=== PATIENT | male | born 1960 | race African-American/Black ===

== ENCOUNTER 2018-12-04 17:22 | Observation (INO) ==
[2018-12-04] MEDS ORDERED: ZOFRAN IM ONE (18:33)
[2018-12-04] MEDS ORDERED: MORPHINE IV ONE (18:33)
[2018-12-04] MEDS ORDERED: ZOFRAN IV ONE (18:38)
[2018-12-04] MEDS ORDERED: TORADOL IV ONE (18:57)
[2018-12-04 18:59] LABS: BASO# 0.05 X1000 (0.0-0.2); BASO% 0.7 % (0.0-0.8); EOS# 0.33 X1000 (0.0-0.7); EOS% 4.6 % (0.0-10.0); LYMPH# 2.67 X1000 (1.2-3.4); LYMPH% 36.9 % (20.5-51.1); MCH 34.1 PG (27-31); MCV 97.3 FL (81-99); MONO# 0.65 X1000 (0.11-0.59); MPV 10.6 FL (7.4-10.4); NEUT# 3.53 X1000 (1.4-6.5); NEUT% 48.8 % (42.2-75.2); PLT 169 X1000 (130-400); RBC 4.11 XMIL (4.7-6.1); RDW 13.5 % (11.5-14.5); WBC 7.23 X1000 (4.8-10.8)
[2018-12-04 19:24] LABS: AGAP 9; ALBUMIN 3.9 g/dL (3.5-5.0); ALKALINE PHOSPHATASE 122 U/L (32-122); BUN 10 mg/dL (8-22); CALCIUM 8.6 mg/dL (8.8-10.2); CHLORIDE 104 mmol/L (98-107); COSMO 278; CREATININE 0.8 mg/dL (0.7-1.2); ESTIMATED GFR > 60; GLUCOSE 89 mg/dL (70-104); GOT 15 U/L (10-34); GPT 15 U/L (10-44); LIPASE 17 U/L (13-60); POTASSIUM 3.7 mmol/L (3.5-5.1); SODIUM 140 mmol/L (136-145); TCO2 26 mmol/L (25-35); TOTAL PROTEIN 6.9 g/dL (6.3-8.3)
--- NOTE | 2018-12-04 19:36 | Diag Imaging Result Doc PS360 ---
EXAM: US ABDOMEN-COMPLETE INDICATION: RUQ pain COMPARISON: None. FINDINGS: There has been a prior cholecystectomy. The common bile duct is normal in diameter. The liver is grossly unremarkable. Portal venous flow is hepatopetal. The pancreas is partially obscured by bowel gas. The visualized portion is unremarkable. The aorta and IVC are grossly unremarkable. The spleen is unremarkable. There is mild prominence of the left renal collecting system. This is of unknown acuity. The kidneys are unremarkable, otherwise. IMPRESSION: Very mild prominence of the left renal collecting system, which is of unknown acuity, but certainly could be chronic. Unremarkable ultrasound, otherwise. Electronically signed by Phillip De La Rosa 12/04/2018 7:34 PM
--- NOTE | 2018-12-04 21:05 | Diag Imaging Result Doc PS360 ---
EXAM: CHEST-2 VIEWS INDICATION: rib pain TECHNIQUE: 2 views COMPARISON: None. FINDINGS: The lungs are grossly clear. There is no discrete pleural fluid collection or pneumothorax. The cardiomediastinal silhouette and central vasculature are grossly unremarkable. IMPRESSION: No evidence of acute pathology by plain radiograph. Electronically signed by Phillip De La Rosa 12/04/2018 9:03 PM
[2018-12-04] MEDS ORDERED: LOVENOX 1 MG/KG SUBQ ONE (21:27)
[2018-12-04] MEDS ORDERED: NITROGLYCERIN TOP ONE (21:27)
[2018-12-04] MEDS ORDERED: ASPIRIN PO ONE (21:27)
[2018-12-04] MEDS ORDERED: LOVENOX ONE (21:59)
[2018-12-05 08:31] VITALS: BP 132/89
[2018-12-05] MEDS ORDERED: ROBAXIN PO PRN (10:44)
[2018-12-05] MEDS ORDERED: MOBIC PO SCH (10:45)
--- NOTE | 2018-12-05 11:25 | GRADED EXERCISE REPORT ---
DATE: 12/05/2018 STUDY: Lexiscan. INDICATION: Bradycardia. DESCRIPTION OF PROCEDURE IN DETAIL: Dr. Rosario ordering. Baseline heart rate 40, although sometimes it was in the 30s, had a sinus bradycardia. Blood pressure 141/93. Baseline EKG showed sinus andrea, nonspecific ST changes. He underwent Lexiscan per protocol 0.4 mg. He did develop some chest pressure during the test. However, no significant ST-T changes were noted. He did increase his heart rate though to about the 80s. Peak heart rate 81, peak blood pressure 145/97. The test was felt to be clinically positive, mildly so, and electrically negative. Myocardial perfusion reported separately. cc: Rodri Khan MD
[2018-12-05] MEDS ORDERED: LEXISCAN ONE (11:36)
--- NOTE | 2018-12-05 15:05 | EKG Report ---
Test Performed on : 12/04/2018 7:56:43 PM Test Reason : CP Blood Pressure : / mmHG Vent. Rate : 039 BPM Atrial Rate : 039 BPM P-R Int : 142 ms QRS Dur : 092 ms QT Int : 460 ms P-R-T Axes : 039 019 004 degrees QTc Int : 370 ms Marked sinus bradycardia. Abnormal ECG No previous ECGs available Unconfirmed Result
--- NOTE | 2018-12-05 15:24 | Diag Imaging Result Document ---
PROCEDURE NAME: MYOCARDIAL PERF SCAN, STR/REST - 12/05/2018 INDICATION: This is a 58-year-old male with chest pain, bradycardia. DESCRIPTION OF PROCEDURE: The patient came into the nuclear lab and received a rest injection of technetium 99 sestamibi 14.7 mCi. Multiple tomographic views of the cardiac structures were obtained at rest. Subsequently the patient underwent a walking Lexiscan protocol with infusion of Lexiscan 0.4 mg under the supervision of Dr. Khan and at peak infusion was injected with technetium 99 sestamibi 41.2 mCi. Multiple tomographic views of the cardiac structures were obtained following completion of the protocol. SUMMARY OF MYOCARDIAL PERFUSION PORTION OF THE STUDY: Poststress tomographic views of the left ventricle showed normal homogeneous distribution of radiotracer throughout the entire left ventricular myocardium. There is no evidence of any postexercise defect. The rest images showed normal perfusion. The polar plots revealed the same. There is no evidence of neither inducible ischemia nor myocardial scar. Gated SPECT shows normal left ventricular systolic function. Ejection fraction is estimated at 64%. Normal ventricular volumes. No wall motion abnormality. Lung/heart ratio appears to be elevated. TID is normal. CONCLUSIONS: In summary, this study showed: 1. Normal poststress myocardial perfusion scan. There is no scintigraphic evidence of pharmacologically induced myocardial ischemia. 2. Normal left ventricular systolic function. Ejection fraction is estimated at 64%. Normal ventricular volumes. No wall motion abnormality. 3. This study would suggest low risk for ischemic events. Clinical correlation is recommended. cc: MD Rebecca Villasenor CRNP
--- NOTE | 2018-12-05 23:00 | HISTORY AND PHYSICAL ---
CHIEF COMPLAINT: Rib pain. HISTORY OF PRESENT ILLNESS: The patient is a 58-year-old male who presented to the hospital complaining of bilateral rib pain with movement and twisting. He does a lot of twisting at work. He notes that his ribs have started hurting and they have been burning. ALLERGIES: No known drug allergies. MEDICATIONS: Colchicine, Flexeril, prednisone. PAST MEDICAL HISTORY: Significant for gout. No previous history of coronary disease. REVIEW OF SYSTEMS: Denies any fevers or chills. Denies any real chest pains or palpitations. Denies any shortness of breath. He states that he has pain with movement of his bilateral ribs. It is 10 out of 10 in intensity at times. Denies any dysuria, frequency, urgency or hesitancy. Denies constipation, melena, hematochezia. SOCIAL HISTORY: Noncontributory. The patient is employed. He does smoke and drinks alcohol occasionally. PHYSICAL EXAMINATION: VITAL SIGNS: Reviewed. Temperature 98 degrees, pulse 53, respiratory rate 20. BP 145/127, currently 149/95. Saturation 98% on room air. GENERAL: The patient is awake, alert, very pleasant to talk with. He is in no current respiratory distress. HEENT: Normocephalic. NECK: Supple. CARDIOVASCULAR: Regular rate. CHEST: Clear, nonlabored. He is having tenderness in the bilateral lower ribs to palpation. EXTREMITIES: Moves all extremities. NEUROLOGIC: No changes. ASSESSMENT: 1. Bilateral rib pain. 2. Hypertension, improved. 3. Gout. 4. Musculoskeletal injury. PLAN: The patient was admitted to the hospital overnight, as the ER apparently told Cardiology that the patient was having 10/10 chest pain. This is clearly chest wall pain, as it is easily reproducible with light palpation of his bilateral 10th, 11th and 12th rib area. The patient notes that this is the pain that he complained of in the ER as well. cc: Andrey Rosario MD
--- NOTE | 2018-12-05 23:20 | DISCHARGE SUMMARY ---
ADMISSION DATE: 12/04/2018 DISCHARGE DATE: 12/05/2018 DISCHARGE DIAGNOSES: 1. Bilateral rib pain. 2. Gout. CONSULTATIONS: None. PROCEDURES: Cardiolite GXT that was reported as negative. BRIEF HOSPITAL COURSE: The patient is a 58-year-old male who was admitted to the hospital after Cardiology was told that the patient was having 10/10 chest pain. As noted, this is clearly chest wall and musculoskeletal pain, as it is easily reproducible to light palpation bilaterally on his ribs. The patient has had an uneventful hospital course. He had a stress test that was negative. DISCHARGE DISPOSITION: This patient will be discharged home. Again, discussed with him the use of Flexeril that he has at home only at night. We will write a prescription for Robaxin that he can take during the day as well as an anti-inflammatory, Mobic. Discussed with the patient if symptoms do not resolve he may need to consider physical therapy and time off work. cc: Andrey Rosario MD
== END 2018-12-05 15:59 | disposition home or self-care (01) ==
LOC: P.ED 17:22 → P.MEDSURG 17:23 → INTOOBSV 17:23
PROVIDERS: ATTEND Family Medicine
CPT/HCPCS: 71020; 71046; 76700; 78452; 80053; 83690; 84484; 85025; 85379; 93005; 93017; 96372; 96374; 96375; 99285; A9270; A9500; G0378; J1650; J1885; J2270; J2405; J2785

== ENCOUNTER 2019-04-27 16:04 | Inpatient (IN) ==
--- NOTE | 2019-04-27 16:58 | EKG Report ---
Test Performed on : 04/27/2019 4:41:40 PM Test Reason : WEAKNESS DIZZINESS Blood Pressure : / mmHG Vent. Rate : 050 BPM Atrial Rate : 050 BPM P-R Int : 138 ms QRS Dur : 090 ms QT Int : 420 ms P-R-T Axes : 026 045 061 degrees QTc Int : 382 ms Sinus bradycardia. Minimal voltage criteria for LVH, may be normal variant Nonspecific T wave abnormality Abnormal ECG When compared with ECG of 11-DEC-2018 17:13, Nonspecific T wave abnormality now evident in Lateral leads Unconfirmed Result
[2019-04-27 17:14] LABS: BASO# 0.03 X1000 (0.0-0.2); BASO% 0.5 % (0.0-0.8); EOS# 0.22 X1000 (0.0-0.7); EOS% 3.8 % (0.0-10.0); HEMATOCRIT 39.9 % (42.0-52.0); HEMOGLOBIN 14.3 g/dL (14.0-18.0); LYMPH# 1.93 X1000 (1.2-3.4); MCH 34.7 PG (27-31); MCHC 35.8 g/dL (33-37); MCV 96.8 FL (81-99); MONO# 0.74 X1000 (0.11-0.59); MONO% 12.6 % (1.7-9.3); MPV 10.7 FL (7.4-10.4); NEUT# 2.93 X1000 (1.4-6.5); NEUT% 50.1 % (42.2-75.2); PLT 158 X1000 (130-400); RBC 4.12 XMIL (4.7-6.1); RDW 14.2 % (11.5-14.5); WBC 5.85 X1000 (4.8-10.8)
--- NOTE | 2019-04-27 17:30 | Diag Imaging Result Doc PS360 ---
EXAM: CHEST-2 VIEWS 04/27/2019 HISTORY: weak, dizzy while at work TECHNIQUE: PA and lateral chest COMMENT: There is no evidence of acute cardiac or pulmonary disease. Compared to 12/04/2018 considering differences in technique there has been no significant change. IMPRESSION: No evidence of acute disease. Electronically signed by Duke Kaplan 04/27/2019 5:27 PM
[2019-04-27 17:32] LABS: AGAP 8; ALBUMIN 3.8 g/dL (3.5-5.0); ALKALINE PHOSPHATASE 111 U/L (32-122); BUN 15 mg/dL (8-22); CALCIUM 8.2 mg/dL (8.8-10.2); CHLORIDE 108 mmol/L (98-107); COSMO 276; CREATININE 0.8 mg/dL (0.7-1.2); ESTIMATED GFR > 60; GLUCOSE 90 mg/dL (70-104); GOT 20 U/L (10-34); GPT 23 U/L (10-44); POTASSIUM 3.9 mmol/L (3.5-5.1); SODIUM 138 mmol/L (136-145); TCO2 23 mmol/L (25-35); TOTAL PROTEIN 6.6 g/dL (6.3-8.3)
[2019-04-27 18:25] LABS: CK-MB 6.25 ng/mL (0.0-5.0)
[2019-04-27] MEDS ORDERED: ASPIRIN PO ONE (18:48)
[2019-04-27 19:30] LABS: CK-MB 6.29 ng/mL (0.0-5.0)
--- NOTE | 2019-04-27 20:48 | EKG Report ---
Test Performed on : 04/27/2019 6:43:36 PM Test Reason : repeat Blood Pressure : / mmHG Vent. Rate : 043 BPM Atrial Rate : 043 BPM P-R Int : 146 ms QRS Dur : 088 ms QT Int : 470 ms P-R-T Axes : 028 043 061 degrees QTc Int : 397 ms Marked sinus bradycardia. Minimal voltage criteria for LVH, may be normal variant Abnormal ECG When compared with ECG of 27-APR-2019 16:41, (Unconfirmed) No significant change was found Unconfirmed Result
--- NOTE | 2019-04-27 21:05 | PROVIDER DOCUMENTATION ---
This chart was entered by Zeny Kam Scribe, acting as scribe for Shira Contreras MD. HPI-General Adult - General Chief Complaint: General Adult Stated Complaint: WEAK / NAUSEA / LIGHT HEADED Time Seen by Provider: 04/27/19 20:00 Source: patient Allergies/Adverse Reactions: Patient Allergies Allergy/AdvReac Type Severity Reaction Status Date / Time No Known Allergies Allergy Verified 04/08/19 18:18 Home Medications: Home Medication List Medication Instructions Recorded Confirmed Last Taken Type Allopurinol [Zyloprim] 300 mg PO BID 12/04/18 12/11/18 12/10/18 History Levetiracetam 1,000 mg PO BID 12/04/18 12/11/18 12/10/18 History Ciprofloxacin [Cipro] 500 mg PO BID #14 tab 04/08/19 Unknown Rx Hydrocodone/APAP 7.5 mg/325 mg 1 ea PO Q6H PRN PRN #10 tab 04/08/19 Unknown Rx [[place]-7.5] Ketorolac [Toradol] 10 mg PO Q6H PRN PRN #14 tab 04/08/19 Unknown Rx Tamsulosin [Flomax] 0.4 mg PO DAILY #20 cap 04/08/19 Unknown Rx - History of Present Illness -Gen Adult Nature of Presenting Problems: pt is a 59 yr old male presenting with complaint of weakness, dizziness and [place] onset while at work today. 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 pt denies any chest pain or shortness of breath. pt reports hx of low heart rate, [facility] but pt has not followed through. pt denies any other complaints. Location of Pain/Injury: reports: none Pain Radiation: reports: no radiation Quality of Pain: reports: none Severity: reports: moderate Onset/Duration: reports: abrupt, this afternoon Timing: reports: still present Context/Activities at Onset: reports: light activity Modifying Factors: improves with: nothing Associated Symptoms: reports: dizziness, fatigue, nausea, weakness. denies: chest pain, headaches, shortness of breath, syncope, vomiting, trouble walking Similar Symptoms Previously?: Yes Recently seen or treated by another doctor?: No Review of Systems - Adult - REVIEW OF SYSTEMS - ADULT Constitutional: reports: fatique. denies: chills, fever Eyes: denies: decreased vision, blurred vision, double vision Ears, Nose, Mouth & Throat: reports: no symptoms reported Cardiovascular: reports: other (low hr). denies: chest pain, edema, palpitations, syncope Respiratory: denies: cough, shortness of breath Gastrointestinal: reports: nausea. denies: abdominal pain, vomiting Genitourinary: reports: no symptoms reported Musculoskeletal: denies: back pain, joint pain, neck pain Integumentary: reports: no symptoms reported Neurological: reports: dizziness/vertigo. denies: headache/migraines, loss of balance, syncope Psychiatric: reports: no symptoms reported Endocrine: reports: no symptoms reported Hematologic/Lymphatic: reports: no symptoms reported Allergic/Immunologic: reports: no symptoms reported All Other Systems: Reviewed and Negative Past History - Adult - PAST MEDICAL HISTORY-ADULT Review of Records: reports: Old Records Reviewed, Nursing Assessment Review, Medications Reviewed, Social history reviewed & non-contributory. Major Childhood Illnesses: reports: denies history Cardiovascular: reports: denies history Respiratory: reports: denies history Gastrointestinal: reports: denies history Obstetrical/Gynecological: reports: denies history Genitourinary: reports: denies history Musculoskeletal: reports: denies history Neurological: reports: denies history Endocrine/Immune: reports: denies history Other Conditions: reports: denies history - IMMUNIZATION STATUS Childhood Immunizations: See Nurse Assessment Flu Vaccine: See Nurse Assessment - FAMILY HISTORY Family History: reviewed, not pertinent - SOCIAL HISTORY Smoking: cigarettes Provider spent 3-5 mins advising pt. on dangers of tobacco.: Discussed manners to quit use, and f/u contacts for add'l counseling. Substance Use: alcohol Alcohol Use Frequency: occasionally Living Situation: family Physical Exam-General - PHYSICAL EXAM-ADULT Initial Vital Signs Reviewed: Yes - CONSTITUTIONAL General Appearance: appears well, alert, no apparent distress - EYES Eyes: PERRL/EOMI - HEAD, EARS, NOSE, MOUTH & THROAT HENMT: normocephalic/atraumatic, moist mucous membranes - NECK Neck: non-tender, full range of motion, supple, normal inspection - RESPIRATORY Respiratory: chest non-tender, lungs clear, normal breath sounds - CARDIOVASCULAR Cardiovascular: normal peripheral pulses, no edema, bradycardia (40-42 during exam) - GASTROINTESTINAL (ABDOMEN) Abdominal Exam: normal bowel sounds, non tender, soft - LYMPHATIC Lymphatic: no adenopathy - MUSCULOSKELETAL Back Exam: normal inspection, no CVA tenderness, no vertebral tenderness Extremity: normal range of motion, non-tender, normal gait, normal inspection - SKIN Integumentary: normal color, normal turgor, warm/dry - NEUROLOGIC Neurologic: grossly normal, no motor/sensory deficits - PSYCHIATRIC Psych/Mental Status: normal mood/affect Progress - PLAN OF CARE/RESULTS Progress/Plan/Lab Results: Vital Signs - 8 hr 04/27/19 16:19 04/27/19 18:45 04/27/19 19:18 Temperature 97.8 F 98.5 F Pulse Rate 54 L 41 L 42 L Respiratory Rate 18 18 18 Blood Pressure 138/90 146/96 148/98 O2 Sat by Pulse Oximetry 99 95 98 Laboratory Results - last 24 hr 04/27/19 04/27/19 04/27/19 17:05 17:05 17:05 WBC 5.85 RBC 4.12 L Hgb 14.3 Hct 39.9 L MCV 96.8 MCH 34.7 H MCHC 35.8 RDW Std Deviation 14.2 Plt Count 158 MPV 10.7 H Immature Gran % (Auto) 0.0 Neut % (Auto) 50.1 Lymph % (Auto) 33.0 [place] % (Auto) 12.6 H Eos % (Auto) 3.8 Baso % (Auto) 0.5 Immature Gran # (Auto) 0.00 Neut # (Auto) 2.93 Lymph # (Auto) 1.93 [place] # (Auto) 0.74 H Eos # (Auto) 0.22 Baso # (Auto) 0.03 Sodium Potassium Chloride Carbon Dioxide Anion Gap BUN Creatinine Estimated GFR/1.73 m2 BUN/Creatinine Ratio Glucose Calculated Osmolality Calcium Total Bilirubin AST ALT Alkaline Phosphatase Creatine Kinase 314 H Creatine Kinase Index 2.0 CK-MB (CK-2) 6.25 H Troponin T < 0.010 Total Protein Albumin Globulin Albumin/Globulin Ratio 04/27/19 04/27/19 04/27/19 17:05 18:35 18:35 WBC RBC Hgb Hct MCV MCH MCHC RDW Std Deviation Plt Count MPV Immature Gran % (Auto) Neut % (Auto) Lymph % (Auto) [place] % (Auto) Eos % (Auto) Baso % (Auto) Immature Gran # (Auto) Neut # (Auto) Lymph # (Auto) [place] # (Auto) Eos # (Auto) Baso # (Auto) Sodium 138 Potassium 3.9 Chloride 108 H Carbon Dioxide 23 L Anion Gap 8 BUN 15 Creatinine 0.8 Estimated GFR/1.73 m2 > 60 BUN/Creatinine Ratio 19 Glucose 90 Calculated Osmolality 276 Calcium 8.2 L Total Bilirubin 0.60 AST 20 ALT 23 Alkaline Phosphatase 111 Creatine Kinase 313 H Creatine Kinase Index 2.0 CK-MB (CK-2) 6.29 H Troponin T < 0.010 Total Protein 6.6 Albumin 3.8 Globulin 3.0 Albumin/Globulin Ratio 1.0 Orders Category Date Time Status Finger Stick Blood Sugar (ED) DIRECTED Care 04/27/19 16:24 Active Nursing- Obtain EKG ONCE Care 04/27/19 16:24 Active CHEST-2 VIEWS [RAD] Stat Exams 04/27/19 16:58 Completed CBC WITH DIFF [HEME] Stat Lab 04/27/19 17:05 Completed CK PROFILE [SP CHEM] Stat Lab 04/27/19 17:05 Completed CK PROFILE [SP CHEM] Stat Lab 04/27/19 18:35 Completed COMPREHENSIVE METABOLIC PANEL [CHEM] Stat Lab 04/27/19 17:05 Completed TROPONIN T Stat Lab 04/27/19 17:05 Completed TROPONIN T Stat Lab 04/27/19 18:35 Completed Aspirin Med 04/27/19 18:48 Discontinued 325 mg PO NOW ONE EKG [EKG] Stat Ther 04/27/19 16:24 Draft EKG [EKG] Stat Ther 04/27/19 18:30 Ordered patient signed out to me pending reeval and labs. Has been bradycardic in the 40s throughout ED say. He has an acute episode of dizziness and chest pain. he has been evaluated int he past with a holter but states that Holter fell apart and he never got the results. States another Dr has talked to him about a pacemaker. Spoke to patient about staying in the hospital for evaluation given that now he having smyptoms that might be related to his bradycardia. He is a pa tient of the [facility] but does have other insurance and would like to stay at this hospital as no one will be able to pick him up if he goes to [place]. He also doesnt followup with his Drs regularly because he states they are too far for him. Spoke to Dr Rosario transportation manager for hospitalist who accepted patient for admission. Result Diagrams: 04/27/19 17:05 04/27/19 17:05 - XRAY 1 XRAY Study: Chest Impression: Normal ( Signed EXAM: CHEST-2 VIEWS 04/27/2019 HISTORY: weak, dizzy while at work TECHNIQUE: PA and lateral chest COMMENT: There is no evidence of acute cardiac or pulmonary disease. Compared to 12/04/2018 considering differences in technique there has been no significant change. IMPRESSION: No evidence of acute disease. Electronically signed by Duke Kaplan 04/27/2019 5:27 PM 04/27/19 1727 Interpreting Physician: Duke Kaplan MD Dictated Date/Time: 04/27/191726 cc: Kristofer Lucas MD; None,PCP) - CONSULTS/PCP/HOSPITALIST Notification #1 *Consult/PCP/Hospitalist*: [place] Time Discussed: 21:03 Consult Disposition: Admit Departure - Departure Date of Disposition Decision: 04/27/19 Time of Disposition Decision: 21:02 DIAGNOSIS: Sinus bradycardia, Dizziness, Atypical chest pain Disposition: ADMITTED INPATIENT 09 Certified Medical Emergency: Emergent Condition: Stable Referrals and Follow-Ups: None,PCP [Primary Care Provider] - - Critical Care Note This patient required my direct & personal management of CC.: No Attestation - Physician/ AUDELIA Attestation Patient care was provided by Advanced Practice Provider:: No The physician spent face to face time with patient:: Yes Advanced Practice Provider documentation review:: Supervising physician onsite and consulted in the evaluation and care of this patient. The physician did have a face to face encounter with the patient. This chart was documented by the indicated scribe, (Zeny Kam Scribe) and accurately reflects the services I performed and decisions made by me, Shira Contreras MD, as attested by the provider's signature.
[2019-04-28] MEDS: NS 1,000 ML IV SCH ×2 (10:11→16:51)
[2019-04-28] MEDS ORDERED: NORCO-7.5 PO PRN (12:41)
[2019-04-28] MEDS ORDERED: ZOFRAN IV PRN (12:44)
[2019-04-28] MEDS ORDERED: TYLENOL PO PRN (12:44)
[2019-04-28] MEDS: NICODERM PATCH TD SCH (13:26)
[2019-04-28] MEDS: LOVENOX SUBQ SCH (13:26)
--- NOTE | 2019-04-28 15:42 | HISTORY AND PHYSICAL ---
PRIMARY CARE PHYSICIAN: Dr. Nroth at the [facility]. CHIEF COMPLAINT: Dizziness, weakness and lightheadedness. HISTORY OF PRESENT ILLNESS: Mr. Workman is a 59-year-old male. He presented to the ER with complaints of dizziness, lightheadedness, and weakness. The patient states he was at work started feeling dizzy and lightheaded had to sit down. He was encouraged to leave work and come to the ER at that time. The patient denies any chest pain. He denies any headache, fever, chills, nausea, or vomiting. He denies any syncopal episodes. He denies any blurred vision. He denies any abdominal pain, vomiting. Denies any constipation, diarrhea. Denies any blood in his stools. He denies any hematuria, dysuria, frequency or urgency. In the ER heart rate was noted to be 41 and dropped into the 30's with a blood pressure of 146/96. The patient has a past medical history of gout and seizures and tobacco dependency. LABORATORY FINDINGS in the ER: Show a creatine kinase of 314 and index of 2, a CK-MB of 6.25 and a troponin of less than 0.01. Chest x-ray shows no acute disease. EKG shows sinus bradycardia with a rate of 50. PAST MEDICAL HISTORY: Gout, seizures, and tobacco dependency. PAST SURGICAL HISTORY: Rotator cuff surgery to the left shoulder, cholecystectomy. FAMILY HISTORY: Mother who is , of Alzheimer's disease. Father who is , of an AR. He has also had 3 brothers that have had an AR. SOCIAL HISTORY: The patient lives in [place]. He works at [employer]. He smokes half a pack of cigarettes daily and occasionally he drinks alcohol. Denies any illicit drug use. ALLERGIES: No known drug allergies. HOME MEDICATIONS: 1. Toradol 10 mg p.o. q.6 hours p.r.n. 2. Allopurinol 300 mg p.o. b.i.d. 3. Wellbutrin 150 mg p.o. b.i.d. 4. Timewell 7.5, 1 tablet p.o. q.6 hours p.r.n. 5. Keppra 1000 mg p.o. b.i.d. 6. Flomax 0.4 mg p.o. daily. LABS AND DIAGNOSTICS: Sodium 138, potassium 3.9, chloride 108, carbon dioxide 23, BUN is 15, creatinine is 0.8. Estimated GFR is greater than 60. Glucose is 90. Calcium is 8.2, bilirubin is 0.6. AST is 20, ALT is 23, alkaline phosphatase is 111, creatine kinase 314, creatine kinase index is 2, CK-MB is 6.25, troponin is less than 0.01. Chest x-ray shows no evidence of acute disease. EKG shows sinus bradycardia at a rate of 50. REVIEW OF SYSTEMS: A 10 point review of systems has been obtained and all are negative except what is stated above in HPI. PHYSICAL EXAMINATION: VITAL SIGNS: Temperature 97.8 degrees, pulse rate 43, respiratory rate 19, blood pressure 135/81, O2 saturations 95% on room air. Weight is 193.4 pounds, height 5 feet 6 inches. GENERAL: This is a 59-year-old male. He is lying in the bed. He is in no acute distress. He is well nourished and well developed. HEENT: Atraumatic, normocephalic. Pupils equal, round, reactive to light. Extraocular movements intact. Sclerae is anicteric. Mucous membranes are moist. NECK: Supple. No lymphadenopathy. Trachea is midline. No JVD. No thyromegaly. No bruits. CV: Sinus bradycardia on the monitor. No murmurs, gallops, or rubs appreciated. Regular rate and rhythm. RESPIRATORY: Lung sounds are clear with equal chest excursion. Respirations are nonlabored with no accessory muscle usage. GI: Abdomen is soft, nontender, nondistended. Bowel sounds are present x4. NEUROLOGIC: Cranial nerves 2-12 are intact. The patient is awake, alert, oriented. MUSCULOSKELETAL: Full distal strength noted. No abnormalities. No deformities. EXTREMITIES: No clubbing, no cyanosis, no edema. DP and PT pulses are present and palpable. SKIN: Warm, dry, and intact. No rashes. No bruises. No diaphoresis. ASSESSMENT AND PLAN: 1. Bradycardia. The patient is admitted to the ICU unit. Pulse rate is now in the 40s to 50s. The patient is denying any dizziness or lightheaded at this time. However, he is lying in the bed. The patient is not complaining of any dyspnea. He is on room air, O2 sats within normal range. We have consulted Cardiology to see the patient. We are going to start him on some IV fluid hydration, normal saline at 150 mL an hour. 2. Pain. Patient is complaining of some right-sided pain. The patient does take Timewell at home for his pain. I will restart that. 3. History of seizures. I have restarted his home Keppra. 4. Gout. I have restarted his home allopurinol. 5. Gastrointestinal prophylaxis. I have started him on omeprazole 40 mg daily. 6. Deep venous thrombosis prophylaxis. I have started him on Lovenox 40 mg subcutaneous daily. 7. Tobacco dependency. I have started him on a nicotine patch daily and provided him with smoking cessation. We have admitted this patient to the ICU unit where we are monitoring his heart rate, providing him with IV fluid hydration. We have consulted cardiology for evaluation. The patient is not complaining of any weakness or lightheadedness at this time. He is not short of breath. He is on room air and O2 sats are 95%. I have restarted his home medications. We are providing him with a healthy heart diet. We are going to get a echocardiogram on him. Also, I have reordered labs for in the morning and repeat EKG in the morning. Dictated by WGEN Harper for Andrey Rosario MD cc: MD Jaquan El MD MTDD
--- NOTE | 2019-04-28 16:34 | CARDIOLOGY CONSULTATION ---
DATE: 04/28/2019 CONSULTATION REQUESTED BY: The hospitalist service, Dr. Rosario. REASON FOR CONSULTATION: Bradycardia, lightheadedness, dizziness. HISTORY: Mr. Workman says that he went to work yesterday [employer]. He started his shift at about 2 p.m. and about a quarter to 3 he started feeling dizzy, lightheaded, feeling almost like passing out. He said down for moment. They recommended him to come to the hospital for evaluation. Upon presentation, they checked his pulse, heart rate was 54 and then it dropped 41, 42, even 39. They did an EKG on him at 4:41 p.m. Heart rate is 50 beats per minute. EKG shows no ischemic changes. His chest x-ray showed no acute disease. His blood work showed a CPK value initially of 314, subsequently 313. Troponins have been checked twice. They are negative. At this time, I am seeing him at about 1:50 p.m. and he is resting in bed. He is just a little sleepy. He has no further complaints. PAST MEDICAL HISTORY: The patient was admitted to this hospital back in November of this year with complaints of bilateral rib pain. At that time, they did a stress test. That was 12/05/2018. With the stress test his heart rate went from 41 to 81. His perfusion images came back normal. Subsequently, he has seen Dr. Arie Mckeon at the office as a new patient for evaluation of bradycardia. At that time, a 2D echocardiogram was recommended. The echocardiogram was supposed to be done on February 14, however it seems like the patient has not had it done. He has had a CT of the abdomen and pelvis on April 08 that showed obstructing right ureterovesical junction and stone with mild hydronephrosis. There are no other significant issue. He does have a history of seizures. He has been treated at the [place] in [place]. He has gout. He has back pain. He has had some prostate enlargement. SURGICAL HISTORY: Shoulder surgery. SOCIAL HISTORY: He is . He lives with his here. He moved from [place] in May of last year. He has grown-up children. He smokes half a pack of cigarettes a day. FAMILY HISTORY: Noncontributory. HOME MEDICATIONS: At this time include allopurinol 200 twice a day, bupropion 150 twice a day, hydrocodone as needed, Ketoralac as needed, Levaciteratam 1000 twice a day and Flomax 0.4 mg daily. REVIEW OF SYSTEMS: Other than what I have described, nothing significant. PHYSICAL EXAMINATION: Blood pressure right now is 119/97, temperature 97.9 degrees, pulse 53, respirations 25. He is awake, alert, oriented, in no distress.HEENT: Unremarkable. Chest: Sounds clear to auscultation, percussion. Heart: Sounds regular and rhythmic. No gallop or murmur. Abdomen: Nontender. Extremities: Show no edema. Neuro: Follows commands for extremities. BLOOD WORK: Sodium, potassium normal, BUN, creatinine normal. Liver function tests normal. Hemoglobin 14.3. IMPRESSION: 1. Patient who presented with dizziness, lightheadedness, bradycardia possibly symptomatic. Question of sick sinus syndrome. 2. History of seizure disorder. 3. Tobacco user. 4. history of kidney stones. RECOMMENDATION: At this time, we will probably observe him. I may suggest to do a plain treadmill stress test on Tuesday to assess chronotropic response. I will ask for an echocardiogram. Further advice will be forthcoming. cc: Devyn Butler MD [facility]
[2019-04-28] MEDS: ZYLOPRIM PO SCH (20:08)
[2019-04-28] MEDS: KEPPRA PO SCH (20:08)
[2019-04-28 20:22] LABS: UR AMPHETAMINES QUAL NONE DETECTED (NONE DETECT); UR BARBITUATES QUAL NONE DETECTED (NONE DETECT); UR BENZODIAZEPIN QUAL NONE DETECTED (NONE DETECT); UR CANNABINOIDS QUAL NONE DETECTED (NONE DETECT); UR COCAINE QUAL NONE DETECTED (NONE DETECT); UR METHADONE QUAL NONE DETECTED (NONE DETECT); UR METHAMPHETAMINE QUAL NONE DETECTED (NONE DETECT); UR OPIATES QUAL NONE DETECTED (NONE DETECT); UR OXYCODONE QUAL NONE DETECTED (NONE DETECT); UR PCP QUAL NONE DETECTED (NONE DETECT); UR PROPOXYPHENE QUAL NONE DETECTED (NONE DETECT); UR TCA QUAL NONE DETECTED (NONE DETECT)
[2019-04-28 20:23] LABS: BILIRUBIN URINE NEGATIVE (NEGATIVE); CLARITY CLEAR (CLEAR); COLOR YELLOW; GLUCOSE URINE NEGATIVE (NEGATIVE); URINE SOURCE CLEAN CATCH
[2019-04-28 20:24] LABS: BLOOD URINE NEGATIVE (NEGATIVE); KETONE URINE NEGATIVE (NEGATIVE); LEUKOCYTES URINE NEGATIVE (NEGATIVE); NITRITE URINE NEGATIVE (NEGATIVE); PH URINE 6.5; PROTEIN URINE NEGATIVE (NEGATIVE); SP GRAVITY URINE 1.015; UROBILINOGEN URINE 1 mg/dL
--- NOTE | 2019-04-28 20:24 | HISTORY AND PHYSICAL ---
ADDENDUM: Patient seen and examined by myself. Full note dictated and discussed with nurse practitioner. The patient currently has a heart rate in the low 40s. Apparently this has happened before. We are going to admit him to the hospital, ask Cardiology for assistance. We will check an echocardiogram. Certainly he needs to consider having stress testing as well as further workup. We will continue to follow. cc: Andrey Rosario MD
[2019-04-28 20:30] LABS: URINE BACTERIA NEGATIVE /HFP; URINE CAST NONE SEEN /LPF; URINE CRYSTAL NONE SEEN /HPF; URINE EPITHELIAL CELLS >10 /HPF (<10); URINE RBC <10 /HPF (<10); URINE WBC <10 /HPF (<10); URINE YEAST NONE SEEN /HPF
[2019-04-28] MEDS: WELLBUTRIN SR PO SCH ×2 (20:40→20:44)
--- NOTE | 2019-04-29 06:05 | EKG Report ---
Test Performed on : 04/29/2019 06:00:13 AM Test Reason : bradycardia Blood Pressure : / mmHG Vent. Rate : 045 BPM Atrial Rate : 045 BPM P-R Int : 142 ms QRS Dur : 094 ms QT Int : 452 ms P-R-T Axes : 045 049 062 degrees QTc Int : 390 ms Sinus bradycardia. Minimal voltage criteria for LVH, may be normal variant Nonspecific ST and T wave abnormality Abnormal ECG When compared with ECG of 27-APR-2019 18:43, (Unconfirmed) No significant change was found Confirmed by Kristofer Lucas MD ([id number]) on 04/29/2019 11:25:29 AM
[2019-04-29] MEDS: PRILOSEC PO SCH (06:45)
[2019-04-29 07:05] LABS: BASO# 0.02 X1000 (0.0-0.2); BASO% 0.3 % (0.0-0.8); EOS# 0.19 X1000 (0.0-0.7); EOS% 3.2 % (0.0-10.0); HEMATOCRIT 40.9 % (42.0-52.0); HEMOGLOBIN 14.2 g/dL (14.0-18.0); LYMPH% 38.8 % (20.5-51.1); MCH 33.4 PG (27-31); MCHC 34.7 g/dL (33-37); MCV 96.2 FL (81-99); MONO# 0.69 X1000 (0.11-0.59); MONO% 11.6 % (1.7-9.3); MPV 11.7 FL (7.4-10.4); NEUT# 2.73 X1000 (1.4-6.5); NEUT% 46.1 % (42.2-75.2); PLT 163 X1000 (130-400); RBC 4.25 XMIL (4.7-6.1); RDW 13.9 % (11.5-14.5); WBC 5.93 X1000 (4.8-10.8)
[2019-04-29 07:23] LABS: AGAP 10; BUN 11 mg/dL (8-22); CALCIUM 8.5 mg/dL (8.8-10.2); CHLORIDE 106 mmol/L (98-107); CHOLESTEROL 99 mg/dL (0-200); CK PROFILE 126 U/L (24-204); COSMO 277; CREATININE 0.7 mg/dL (0.7-1.2); ESTIMATED GFR > 60; GLUCOSE 97 mg/dL (70-104); HDL 32 mg/dL (35-55); LDL 45 mg/dL; MAGNESIUM 1.8 mg/dL (1.5-2.7); POTASSIUM 3.7 mmol/L (3.5-5.1); SODIUM 139 mmol/L (136-145); TCO2 23 mmol/L (25-35); TRIGLYCERIDES 108 mg/dL (39-160); URIC ACID 2.6 mg/dL (3.4-7.0); VLDL 22 mg/dL
[2019-04-29] MEDS: WELLBUTRIN SR PO SCH ×2 (09:08→22:43)
[2019-04-29] MEDS: NICODERM PATCH TD SCH (09:09)
[2019-04-29] MEDS: FLOMAX PO SCH (09:09)
[2019-04-29] MEDS: KEPPRA PO SCH ×2 (09:10→22:42)
[2019-04-29] MEDS: ZYLOPRIM PO SCH ×2 (09:10→22:42)
--- NOTE | 2019-04-29 09:21 | ECHO REPORT ---
ORDER DATE: 04/28/2019 INTERPRETING PHYSICIAN: Dr. Butler REQUESTING PHYSICIAN: Dr. Rosario CLINICAL INDICATIONS: This is a 59-year-old male with bradycardia, dizziness. M-MODE MEASUREMENTS: Right ventricle: cm. Left ventricle end diastole: 4.6 cm. Left ventricle end systole: 3.1 cm. Posterior wall: 1.1 cm. Interventricular septum: 1.1 cm. Left atrium: 3.7 cm. Aortic root: 3.1 cm. SUMMARY OF 2-DIMENSIONAL IMAGIN. The left ventricular function is normal. Ejection fraction is 67%. There is no wall motion abnormality. The left atrium is mild to moderately enlarged. There is borderline LVH. 2. Aortic valve has 3 cusps, and they open normally. Color flow mapping is unremarkable. 3. Mitral valve looks normal. Color flow mapping indicates mild degree of regurgitation. 4. Pulse wave Doppler of mitral inflow is normal. 5. Tissue Doppler of septal and lateral mitral annulus averages 11 cm. 6. Pulmonary venous flow is normal. 7. There is no diastolic dysfunction. 8. Tricuspid valve shows mild degree of regurgitation. 9. Inferior vena cava is not dilated. 10.Pulmonary pressure is estimated at 30 mmHg. 11.Pulmonic valve shows very mild degree of regurgitation. 12.There is no pericardial effusion, mass or thrombus. CONCLUSIONS: In summary, this study shows: 1. Normal left ventricular systolic function. 2. No diastolic dysfunction. 3. Mild degree of pulmonic and mitral regurgitation and trace of tricuspid regurgitation. 4. Pulmonary pressure is estimated at 30 mmHg. Clinical correlation is recommended. cc: Devyn Butler MD
--- NOTE | 2019-04-29 14:04 | PROGRESS NOTE ---
DATE: 04/29/2019 SUBJECTIVE: Patient notes he is feeling a lot better. Has not been lightheaded when he sits up on the side of the bed. PHYSICAL EXAMINATION: Vital Signs: Temperature 98 degrees, pulse 40 to 59, respiratory 18, BP 155/83. General: Patient is awake. He is in no respiratory distress. He is lying in bed. HEENT: Normocephalic. Neck: Supple. Cardiovascular: Heart rate currently 42. No murmurs. Chest: Clear, nonlabored. Abdomen: Soft, nondistended. Extremities: Moves all extremities. Neurologic: No changes. ASSESSMENT: 1. Symptomatic bradycardia. Patient has had a syncopal episode. 2. History of seizures. 3. Gout. Uric acid has been normal. 4. Chronic tobacco abuse. PLAN: We will continue patient in the hospital, transfer him to the floor on telemetry, and will follow. He is scheduled for a stress test in the morning to further evaluate his bradycardia. cc: Andrey Rosario MD
[2019-04-29 14:49] LABS: C REACTIVE PROT QUANT 0.69 mg/L (0.00-5.00)
[2019-04-29] MEDS: LOVENOX SUBQ SCH (18:14)
[2019-04-30] MEDS: PRILOSEC PO SCH (06:44)
[2019-04-30] MEDS: FLOMAX PO SCH (09:31)
[2019-04-30] MEDS: NICODERM PATCH TD SCH (09:32)
[2019-04-30] MEDS: WELLBUTRIN SR PO SCH (09:32)
[2019-04-30] MEDS: ZYLOPRIM PO SCH (09:33)
[2019-04-30] MEDS: KEPPRA PO SCH (09:33)
[2019-04-30] MEDS: LOVENOX SUBQ SCH (15:34)
[2019-04-30 16:27] VITALS: BP 131/86
--- NOTE | 2019-04-30 20:48 | GRADED EXERCISE REPORT ---
DATE: 04/30/2019 PLAIN TREADMILL EXERCISE STRESS TEST INDICATION: Bradycardia and dizziness. Suspect sick sinus syndrome. DESCRIPTION: Resting ECG showed sinus bradycardia, rate 47 beats per minute, resting blood pressure 134/101. Resting ECG showed no significant ST-T abnormality. The patient walked on the treadmill for a total time of 8 minutes. He completed two stages of Ryan protocol and walked for two minutes into the third stage, achieving a maximum heart rate of 155 beats per minute, representing 97% of maximum predicted heart rate for his age. Maximum workload is 10.1 METS. Maximum blood pressure was 175/121. Peak exercise ECG showed sinus tachycardia without any ischemic changes. The test was terminated due to fatigue and achievement of adequate heart rate. The patient reported no chest pain, shortness of breath, or palpitations. Exercise capacity is normal. No arrhythmias were noted. Blood pressure response is physiologic. During the recovery phase no abnormalities were noted. The heart rate and blood pressure returned back to their baseline. SUMMARY: Electrocardiographic response to exercise is normal. There is no ECG evidence of effort induced myocardial ischemia. The patient achieved 97% of maximum predicted heart rate for his age with a workload of 10.1 METS, adequate levels of stress based on double product of peak systolic blood pressure x peak heart rate equal to 27,125. Exercise capacity is normal. No arrhythmias were noted. Clinical correlation is recommended. cc: Devyn Butler MD
--- NOTE | 2019-05-01 06:40 | DISCHARGE SUMMARY ---
ADMISSION DATE: 04/27/2019 DISCHARGE DATE: 04/30/2019 DISCHARGE DIAGNOSES: 1. Bradycardia, heart rates between 40s and mid 50s. 2. Syncope, more likely secondary to volume depletion. 3. Volume depletion, resolved. 4. Gout. CONSULTATIONS: Cardiology. PROCEDURES: Cardiolite GXT, reported as negative. BRIEF HOSPITAL COURSE: The patient was admitted to the hospital with a near syncopal episode. He was noted to have heart rates in the 40s. States he has had low heart rates before and was told to follow up, but he did not. We admitted him to the hospital, placed him in the ICU on telemetry. Thankfully, he had no further episodes, although his heart rate did bounce between the 40s and 50s. His syncopal symptoms improved after volume repletion. The patient underwent a stress test that was reported as negative. He was able to ambulate without difficulty, and therefore, he will be discharged home. DISPOSITION: The patient will be discharged home. I discussed with him that he needs to follow up with his primary care or cardiology regarding his heart rate. Discussed staying well hydrated. Discussed precautions for his occasional lightheaded symptoms, i.e., staying off ladders and away from dangerous equipment, etc. On discharge, the patient will be discharged home. cc: Andrey Rosario MD
== END 2019-04-30 18:19 | disposition home or self-care (01) | DRG 310 ==
LOC: P.ED 16:04 → P.EDIPHOLD 23:16 → P.ICU 23:39 → P.MEDSURG 04-29 11:57
PROVIDERS: ATTEND Family Medicine